=== PATIENT | male | born 1960 | race Caucasian/White ===

== ENCOUNTER 2020-10-12 19:06 | Emergency (ER) | payer SELFPAY ==
[2020-10-12 19:37] VITALS: BP 149/62; PULSE 121; TEMP 98.9; BMI 25.5
[2020-10-12 21:11] LABS: HEMATOCRIT 41.2 % (35.4-49); HEMOGLOBIN 13.8 GM/dL (11.7-16.9); LYMPH % 3.4 % (8-40); MCH 31.5 pg (25.7-33.7); MCHC 33.6 g/dl (32.0-35.9); MEAN CELL VOLUME 93.8 fl (80-96); MEAN PLT VOLUME 8.1 fl (7.5-11.1); MONO % 7.8 % (3.8-10.2); NEUT % 88.8 % (42.8-82.8); PLATELET COUNT 361 K/MM3 (134-434); RBC 4.39 M/mm3 (4.00-5.60); RDW 15.3 % (11.9-15.9); WHITE BLOOD COUNT 20.4 K/mm3 (4.0-10.0)
[2020-10-12 21:55] LABS: POTASSIUM 4.1 mmol/L (3.5-5.1)
[2020-10-12 21:58] LABS: ALBUMIN 3.1 g/dl (3.4-5.0); BLOOD UREA NITROGEN 20.6 mg/dL (7-18); CALCIUM 8.7 mg/dL (8.5-10.1)
[2020-10-12 22:00] LABS: ANISOCYTOSIS 1+; MACROCYTOSIS 1+; PLATELET ESTIMATE NORMAL
[2020-10-12 22:01] LABS: CREATININE 1.1 mg/dL (0.55-1.3)
[2020-10-12 22:03] LABS: BILIRUBIN,TOTAL 0.8 mg/dL (0.2-1)
[2020-10-12 22:50] LABS: EPI CELLS 10 /uL (0-25.1); HYALINE CASTS 6 /uL (0-3.1); URINE APPEARANCE TURBID; URINE BACTERIA >9,000 /uL (0-1359); URINE BILIRUBIN 1+ (NEGATIVE); URINE COLOR DK YELLOW; URINE GLUCOSE (UA) NEGATIVE (NEGATIVE); URINE KETONE TRACE (NEGATIVE); URINE LEUK ESTERASE 2+ (NEGATIVE); URINE NITRITE POSITIVE (NEGATIVE); URINE PROTEIN 2+ (NEGATIVE); URINE WBC 2041 /uL (0-25.8)
[2020-10-12 23:05] LABS: METHADONE, UR NEGATIVE ng/ml (CUTOFF=300)
[2020-10-12 23:06] LABS: PHENCYCLIDINE,URINE NEGATIVE ng/ml (CUTOFF=25); URINE AMPHETAMINES NEGATIVE ng/ml (CUTOFF=500)
[2020-10-12 23:07] LABS: COCAINE, UR NEGATIVE ng/ml (CUTOFF=300); OPIATES, URI POSITIVE ng/ml (CUTOFF=300); URINE BARBITURATES NEGATIVE ng/ml (CUTOFF=200); URINE BENZODIAZEPINES NEGATIVE ng/ml (CUTOFF=200)
[2020-10-12 23:25] LABS: URINE RBC 206 /uL (0-23.9)
== END 2020-10-12 23:25 | disposition left against medical advice (07) ==
LOC: JER 19:06
DX: R55 Syncope and collapse (principal); R00.2 Palpitations
CPT/HCPCS: 36415; 70450-TC; 71046-TC-FY; 80053; 80307; 81003; 82550; 84484; 85025; 93005; 93010; 99285-25; C9803; U0003; U0005

== ENCOUNTER 2020-10-17 15:32 | Inpatient (IN) | payer OTHER ==
[2020-10-17] MEDS ORDERED: SODIUM CHLORIDE 2,177 ML IV ONE (15:48)
[2020-10-17] MEDS ORDERED: NALOXONE HCL 0.4 MG/ML VIAL ONE (16:07)
[2020-10-17] MEDS ORDERED: ACETAMINOPHEN 1000 MG/100 ML VIAL (NON FORMULARY) IVPB ONE (16:11)
[2020-10-17] MEDS ORDERED: ACETAMINOPHEN INJECTION 100 ML IVPB ONE (16:12)
[2020-10-17] MEDS ORDERED: CEFTRIAXONE 1 GM in DEXTROSE 5%-WATER - 100 ML IVPB ONE (16:16)
[2020-10-17] MEDS ORDERED: CEFTRIAXONE 1 GM/50 ML BAG ONE (16:21)
[2020-10-17 16:27] LABS: VENOUS BASE EXCESS -5.8 mmol/L (-2-2); VENOUS PCO2 67.1 mmHg (38-52); VENOUS PH 7.173 (7.310-7.410)
[2020-10-17 16:29] LABS: BASO % 0.6 % (0-2.0); EOS % 0.1 % (0-4.5); HEMATOCRIT 44.5 % (35.4-49); HEMOGLOBIN 14.5 GM/dL (11.7-16.9); LYMPH % 5.3 % (8-40); MCH 31.3 pg (25.7-33.7); MCHC 32.6 g/dl (32.0-35.9); MEAN CELL VOLUME 95.9 fl (80-96); MEAN PLT VOLUME 8.4 fl (7.5-11.1); MONO % 5.5 % (3.8-10.2); NEUT % 88.5 % (42.8-82.8); PLATELET COUNT 447 K/MM3 (134-434); RBC 4.64 M/mm3 (4.00-5.60); RDW 15.8 % (11.9-15.9); WHITE BLOOD COUNT 24.3 K/mm3 (4.0-10.0)
[2020-10-17 16:37] LABS: INR 1.41 (0.83-1.09); PROTHROMBIN TIME (PATIENT) 16.9 SEC (9.7-13.0)
[2020-10-17 16:40] LABS: EPI CELLS 12 /uL (0-25.1); HYALINE CASTS 7 /uL (0-3.1); URINE APPEARANCE TURBID; URINE BACTERIA 1889 /uL (0-1359); URINE BILIRUBIN 2+ (NEGATIVE); URINE COLOR DK YELLOW; URINE GLUCOSE (UA) NEGATIVE (NEGATIVE); URINE KETONE TRACE (NEGATIVE); URINE LEUK ESTERASE TRACE (NEGATIVE); URINE NITRITE NEGATIVE (NEGATIVE); URINE PROTEIN 2+ (NEGATIVE); URINE UROBILINOGEN 0.2 mg/dL (0.2-1.0); URINE WBC 243 /uL (0-25.8)
[2020-10-17 16:57] LABS: ALBUMIN 3.6 g/dl (3.4-5.0); BLOOD UREA NITROGEN 44.8 mg/dL (7-18); CALCIUM 8.9 mg/dL (8.5-10.1)
[2020-10-17 17:00] LABS: CREATININE 4.5 mg/dL (0.55-1.3)
[2020-10-17 17:02] LABS: BILIRUBIN,TOTAL 0.5 mg/dL (0.2-1); TOT PROT 8.8 g/dl (6.4-8.2)
[2020-10-17 17:23] LABS: POTASSIUM 5.6 mmol/L (3.5-5.1)
[2020-10-17 17:24] LABS: ALBUMIN 3.6 g/dl (3.4-5.0); BLOOD UREA NITROGEN 46.4 mg/dL (7-18); CALCIUM 9.4 mg/dL (8.5-10.1)
[2020-10-17 17:28] LABS: CREATININE 4.5 mg/dL (0.55-1.3)
[2020-10-17 17:29] LABS: URINE AMPHETAMINES NEGATIVE ng/ml (CUTOFF=500); URINE BARBITURATES NEGATIVE ng/ml (CUTOFF=200)
[2020-10-17 17:29] LABS: BILIRUBIN,TOTAL 0.4 mg/dL (0.2-1); TOT PROT 8.9 g/dl (6.4-8.2)
[2020-10-17 17:30] LABS: COCAINE, UR NEGATIVE ng/ml (CUTOFF=300); METHADONE, UR NEGATIVE ng/ml (CUTOFF=300); OPIATES, URI NEGATIVE ng/ml (CUTOFF=300); PHENCYCLIDINE,URINE NEGATIVE ng/ml (CUTOFF=25)
[2020-10-17 17:33] LABS: URINE BENZODIAZEPINES NEGATIVE ng/ml (CUTOFF=200)
[2020-10-17 17:33] LABS: ANISOCYTOSIS 1+; MACROCYTOSIS 0; PLATELET ESTIMATE NORMAL
[2020-10-17 18:04] LABS: CALCIUM 8.7 mg/dL (8.5-10.1); CHLORIDE 108 mmol/L (98-107); SODIUM 137 mmol/L (136-145)
[2020-10-17 18:05] LABS: BLOOD UREA NITROGEN 50.6 mg/dL (7-18); GLUCOSE,RANDOM 107 mg/dL (74-106)
[2020-10-17 18:06] LABS: CO2 24 mmol/L (21-32)
[2020-10-17 18:08] LABS: ANION GAP 5 MMOL/L (8-16); CREATININE 4.1 mg/dL (0.55-1.3); POTASSIUM 8.5 mmol/L (3.5-5.1)
[2020-10-17 18:44] LABS: URINE RBC 27.1 /uL (0-23.9)
[2020-10-17 19:37] LABS: ERYTHROCYTE SEDIMENTATION RATE 67 mm/hr (0-20)
[2020-10-17 20:09] LABS: POTASSIUM 5.1 mmol/L (3.5-5.1)
[2020-10-17] MEDS ORDERED: SODIUM CHLORIDE 0.45% 1,000 ML IV SCH (21:00)
[2020-10-17] MEDS: NYSTATIN 500,000 UNITS/5 ML SUSPENSION PO SCH (23:07)
[2020-10-17] MEDS: HEPARIN NA (PORCINE) 5,000 UNITS/ML 1ML VIAL SQ SCH (23:08)
[2020-10-17 23:20] VITALS: BMI 19.2
[2020-10-17] MEDS: AMPICILLIN NA/SULBACTAM NA 3 GM in SODIUM CHLORIDE 100 ML IVPB SCH (23:29)
[2020-10-18] MEDS ORDERED: FAMOTIDINE 20 MG TABLET PO ONE (01:50)
[2020-10-18] MEDS: NYSTATIN 500,000 UNITS/5 ML SUSPENSION PO SCH ×4 (05:38→23:24)
[2020-10-18] MEDS: HEPARIN NA (PORCINE) 5,000 UNITS/ML 1ML VIAL SQ SCH ×3 (05:39→22:16)
[2020-10-18 07:22] LABS: BLOOD UREA NITROGEN 40.6 mg/dL (7-18); CALCIUM 8.2 mg/dL (8.5-10.1)
[2020-10-18 07:23] LABS: MAGNESIUM 2.1 mg/dL (1.8-2.4)
[2020-10-18 07:25] LABS: BASO % 0.4 % (0-2.0); BILIRUBIN,DIRECT 0.2 mg/dL (0.0-0.2); EOS % 0.1 % (0-4.5); HEMATOCRIT 34.6 % (35.4-49); HEMOGLOBIN 11.5 GM/dL (11.7-16.9); LYMPH % 12.9 % (8-40); MCH 31.5 pg (25.7-33.7); MCHC 33.3 g/dl (32.0-35.9); MEAN CELL VOLUME 94.4 fl (80-96); MEAN PLT VOLUME 8.1 fl (7.5-11.1); MONO % 5.5 % (3.8-10.2); NEUT % 81.1 % (42.8-82.8); PLATELET COUNT 319 K/MM3 (134-434); RBC 3.67 M/mm3 (4.00-5.60); WHITE BLOOD COUNT 15.8 K/mm3 (4.0-10.0)
[2020-10-18 07:26] LABS: CREATININE 1.9 mg/dL (0.55-1.3)
[2020-10-18 07:27] LABS: PHOSPHOROUS 4.1 mg/dL (2.5-4.9)
[2020-10-18 07:28] LABS: BILIRUBIN,TOTAL 0.4 mg/dL (0.2-1)
[2020-10-18 07:38] LABS: ALBUMIN 2.8 g/dl (3.4-5.0); TOT PROT 6.6 g/dl (6.4-8.2)
[2020-10-18] MEDS ORDERED: PT OWN MED DRAWER 7, Y5N ONE ×2 (09:18→22:07)
[2020-10-18] MEDS: AMPICILLIN NA/SULBACTAM NA 3 GM in SODIUM CHLORIDE 100 ML IVPB SCH ×2 (09:54→22:16)
[2020-10-18] MEDS: BACITRACIN 15 GM TUBE TOPICAL OINTMENT TP SCH ×2 (12:23→22:16)
[2020-10-18] MEDS: PANTOPRAZOLE 40 MG TABLET PO SCH (12:24)
[2020-10-18] MEDS: SODIUM CHLORIDE 0.45% 1,000 ML IV SCH (12:40)
[2020-10-19] MEDS ORDERED: PT OWN MED DRAWER 7, Y5N ONE ×2 (05:30→21:12)
[2020-10-19] MEDS: HEPARIN NA (PORCINE) 5,000 UNITS/ML 1ML VIAL SQ SCH ×3 (05:36→21:43)
[2020-10-19] MEDS: NYSTATIN 500,000 UNITS/5 ML SUSPENSION PO SCH ×3 (05:36→17:26)
[2020-10-19] MEDS: SODIUM CHLORIDE 0.45% 1,000 ML IV SCH ×3 (05:37→23:00)
[2020-10-19 07:53] LABS: BASO % 0.3 % (0-2.0); EOS % 0.5 % (0-4.5); HEMATOCRIT 33.2 % (35.4-49); HEMOGLOBIN 11.3 GM/dL (11.7-16.9); LYMPH % 15.6 % (8-40); MCH 31.9 pg (25.7-33.7); MCHC 34.1 g/dl (32.0-35.9); MEAN CELL VOLUME 93.7 fl (80-96); MEAN PLT VOLUME 8.3 fl (7.5-11.1); MONO % 6.2 % (3.8-10.2); NEUT % 77.4 % (42.8-82.8); PLATELET COUNT 282 K/MM3 (134-434); RBC 3.54 M/mm3 (4.00-5.60); RDW 14.7 % (11.9-15.9); WHITE BLOOD COUNT 8.1 K/mm3 (4.0-10.0)
[2020-10-19 08:05] LABS: POTASSIUM 3.9 mmol/L (3.5-5.1)
[2020-10-19 08:11] LABS: CALCIUM 8.1 mg/dL (8.5-10.1)
[2020-10-19 08:12] LABS: ALBUMIN 2.3 g/dl (3.4-5.0); BLOOD UREA NITROGEN 16.9 mg/dL (7-18); MAGNESIUM 1.7 mg/dL (1.8-2.4)
[2020-10-19 08:15] LABS: CREATININE 0.9 mg/dL (0.55-1.3)
[2020-10-19 08:16] LABS: BILIRUBIN,TOTAL 0.6 mg/dL (0.2-1); TOT PROT 5.9 g/dl (6.4-8.2)
[2020-10-19] MEDS ORDERED: REGADENOSON 0.4 MG/5 ML PRE-FILLED SYRINGE IVPUSH ONE ×2 (10:08→10:30)
[2020-10-19] MEDS: BACITRACIN 15 GM TUBE TOPICAL OINTMENT TP SCH ×2 (12:30→21:44)
[2020-10-19] MEDS: PANTOPRAZOLE 40 MG TABLET PO SCH (12:30)
[2020-10-19] MEDS: AMPICILLIN NA/SULBACTAM NA 3 GM in SODIUM CHLORIDE 100 ML IVPB SCH ×2 (12:31→21:44)
[2020-10-19] MEDS ORDERED: MAGNESIUM OXIDE 400 MG TABLET (FP) PO ONE (18:40)
[2020-10-20] MEDS: NYSTATIN 500,000 UNITS/5 ML SUSPENSION PO SCH ×4 (00:05→17:19)
[2020-10-20] MEDS: HEPARIN NA (PORCINE) 5,000 UNITS/ML 1ML VIAL SQ SCH ×3 (06:05→21:23)
[2020-10-20 07:46] LABS: EOS % 0.9 % (0-4.5); HEMATOCRIT 33.4 % (35.4-49); HEMOGLOBIN 11.4 GM/dL (11.7-16.9); LYMPH % 18.7 % (8-40); MCH 31.8 pg (25.7-33.7); MCHC 34.2 g/dl (32.0-35.9); MEAN CELL VOLUME 92.9 fl (80-96); MEAN PLT VOLUME 8.4 fl (7.5-11.1); NEUT % 71.4 % (42.8-82.8); PLATELET COUNT 293 K/MM3 (134-434); RBC 3.59 M/mm3 (4.00-5.60); RDW 14.8 % (11.9-15.9); WHITE BLOOD COUNT 6.4 K/mm3 (4.0-10.0)
[2020-10-20 08:28] LABS: ALBUMIN 2.3 g/dl (3.4-5.0); BILIRUBIN,TOTAL 0.6 mg/dL (0.2-1); BLOOD UREA NITROGEN 8.2 mg/dL (7-18); CREATININE 0.7 mg/dL (0.55-1.3); MAGNESIUM 1.8 mg/dL (1.8-2.4); POTASSIUM 3.7 mmol/L (3.5-5.1); TOT PROT 5.7 g/dl (6.4-8.2)
[2020-10-20] MEDS: PANTOPRAZOLE 40 MG TABLET PO SCH (09:30)
[2020-10-20] MEDS: AMPICILLIN NA/SULBACTAM NA 3 GM in SODIUM CHLORIDE 100 ML IVPB SCH ×2 (09:30→21:23)
[2020-10-20] MEDS: BACITRACIN 15 GM TUBE TOPICAL OINTMENT TP SCH ×2 (09:30→21:23)
[2020-10-20] MEDS ORDERED: PT OWN MED DRAWER 7, Y5N ONE ×3 (11:34→22:08)
[2020-10-20] MEDS ORDERED: SODIUM CHLORIDE 0.45% 1,000 ML IV SCH (14:51)
[2020-10-20] MEDS: ALBUTEROL SO4 2.5/IPRATROPIUM 0.5 INH SOL 3 ML VIAL.NEB. NEB SCH (20:14)
[2020-10-20] MEDS ORDERED: ACETAMINOPHEN 1000 MG/100 ML VIAL (NON FORMULARY) IVPB ONE (23:55)
[2020-10-21] MEDS: NYSTATIN 500,000 UNITS/5 ML SUSPENSION PO SCH ×4 (00:20→17:49)
[2020-10-21] MEDS: HEPARIN NA (PORCINE) 5,000 UNITS/ML 1ML VIAL SQ SCH ×3 (06:11→21:15)
[2020-10-21] MEDS: ALBUTEROL SO4 2.5/IPRATROPIUM 0.5 INH SOL 3 ML VIAL.NEB. NEB SCH ×4 (08:45→20:03)
[2020-10-21 08:48] LABS: BASO % 0.8 % (0-2.0); EOS % 1.4 % (0-4.5); HEMOGLOBIN 11.3 GM/dL (11.7-16.9); LYMPH % 22.8 % (8-40); MCH 31.7 pg (25.7-33.7); MCHC 34.1 g/dl (32.0-35.9); MEAN CELL VOLUME 92.9 fl (80-96); MEAN PLT VOLUME 8.8 fl (7.5-11.1); MONO % 8.5 % (3.8-10.2); NEUT % 66.5 % (42.8-82.8); PLATELET COUNT 291 K/MM3 (134-434); RBC 3.55 M/mm3 (4.00-5.60); RDW 14.3 % (11.9-15.9); WHITE BLOOD COUNT 4.8 K/mm3 (4.0-10.0)
[2020-10-21 09:09] LABS: POTASSIUM 3.8 mmol/L (3.5-5.1)
[2020-10-21 09:27] LABS: ALBUMIN 2.4 g/dl (3.4-5.0); BLOOD UREA NITROGEN 6.4 mg/dL (7-18); CALCIUM 8.1 mg/dL (8.5-10.1); MAGNESIUM 1.7 mg/dL (1.8-2.4)
[2020-10-21 09:30] LABS: CREATININE 0.7 mg/dL (0.55-1.3)
[2020-10-21 09:32] LABS: BILIRUBIN,TOTAL 0.4 mg/dL (0.2-1); TOT PROT 5.8 g/dl (6.4-8.2)
[2020-10-21] MEDS ORDERED: AMPICILLIN NA/SULBACTAM NA 3 GM in SODIUM CHLORIDE 100 ML IVPB SCH (10:00)
[2020-10-21] MEDS ORDERED: PT OWN MED DRAWER 7, Y5N ONE (10:25)
[2020-10-21] MEDS: PANTOPRAZOLE 40 MG TABLET PO SCH (10:28)
[2020-10-21] MEDS: BACITRACIN 15 GM TUBE TOPICAL OINTMENT TP SCH ×2 (11:58→21:14)
[2020-10-21] MEDS: SODIUM CHLORIDE 0.45% 1,000 ML IV SCH ×2 (12:48→18:40)
[2020-10-21] MEDS ORDERED: MAGNESIUM 2GM/50ML STERILE WATER IVPB IVPB ONE (13:30)
[2020-10-21] MEDS ORDERED: ACETAMINOPHEN 500 MG TABLET (FP) PO PRN (17:31)
[2020-10-21] MEDS: oxyCODONE HCL 5 MG TABLET PO PRN (17:47)
[2020-10-22] MEDS: NYSTATIN 500,000 UNITS/5 ML SUSPENSION PO SCH ×2 (00:01→05:23)
[2020-10-22] MEDS: HEPARIN NA (PORCINE) 5,000 UNITS/ML 1ML VIAL SQ SCH ×3 (05:23→21:09)
[2020-10-22] MEDS: oxyCODONE HCL 5 MG TABLET PO PRN ×2 (05:45→21:09)
[2020-10-22] MEDS: SODIUM CHLORIDE 0.45% 1,000 ML IV SCH ×3 (06:45→20:13)
[2020-10-22 08:43] LABS: BASO % 1.2 % (0-2.0); HEMATOCRIT 34.7 % (35.4-49); HEMOGLOBIN 11.9 GM/dL (11.7-16.9); LYMPH % 21.1 % (8-40); MCHC 34.3 g/dl (32.0-35.9); MEAN CELL VOLUME 93.3 fl (80-96); MEAN PLT VOLUME 8.8 fl (7.5-11.1); MONO % 8.3 % (3.8-10.2); NEUT % 67.4 % (42.8-82.8); PLATELET COUNT 289 K/MM3 (134-434); RBC 3.72 M/mm3 (4.00-5.60); RDW 14.6 % (11.9-15.9); WHITE BLOOD COUNT 5.3 K/mm3 (4.0-10.0)
[2020-10-22] MEDS: ALBUTEROL SO4 2.5/IPRATROPIUM 0.5 INH SOL 3 ML VIAL.NEB. NEB SCH ×4 (08:44→19:44)
[2020-10-22 08:53] LABS: POTASSIUM 3.9 mmol/L (3.5-5.1)
[2020-10-22 08:57] LABS: ALBUMIN 2.6 g/dl (3.4-5.0); CALCIUM 8.7 mg/dL (8.5-10.1)
[2020-10-22 08:58] LABS: BLOOD UREA NITROGEN 7.5 mg/dL (7-18); MAGNESIUM 1.9 mg/dL (1.8-2.4)
[2020-10-22 09:01] LABS: CREATININE 0.7 mg/dL (0.55-1.3)
[2020-10-22 09:02] LABS: BILIRUBIN,TOTAL 0.4 mg/dL (0.2-1); TOT PROT 6.2 g/dl (6.4-8.2)
[2020-10-22] MEDS ORDERED: PT OWN MED DRAWER 7, Y5N ONE (09:42)
[2020-10-22] MEDS: PANTOPRAZOLE 40 MG TABLET PO SCH (09:45)
[2020-10-22] MEDS: BACITRACIN 15 GM TUBE TOPICAL OINTMENT TP SCH ×2 (09:45→21:12)
[2020-10-22] MEDS: oxyCODONE HCL 5 MG TABLET PO ONE ×2 (13:40→20:07)
[2020-10-22] MEDS ORDERED: ACETAMINOPHEN 325 MG TABLET (FP) PO PRN (20:30)
[2020-10-23] MEDS: HEPARIN NA (PORCINE) 5,000 UNITS/ML 1ML VIAL SQ SCH ×2 (05:20→13:36)
[2020-10-23] MEDS: oxyCODONE HCL 5 MG TABLET PO PRN ×2 (06:30→13:42)
[2020-10-23] MEDS: ALBUTEROL SO4 2.5/IPRATROPIUM 0.5 INH SOL 3 ML VIAL.NEB. NEB SCH ×3 (07:55→15:15)
[2020-10-23] MEDS: SODIUM CHLORIDE 0.45% 1,000 ML IV SCH ×2 (08:36→13:44)
[2020-10-23 08:49] LABS: BASO % 1.3 % (0-2.0); EOS % 2.3 % (0-4.5); HEMATOCRIT 34.6 % (35.4-49); HEMOGLOBIN 11.9 GM/dL (11.7-16.9); LYMPH % 20.9 % (8-40); MCH 31.7 pg (25.7-33.7); MCHC 34.3 g/dl (32.0-35.9); MEAN CELL VOLUME 92.2 fl (80-96); MEAN PLT VOLUME 8.9 fl (7.5-11.1); MONO % 8.1 % (3.8-10.2); NEUT % 67.4 % (42.8-82.8); PLATELET COUNT 294 K/MM3 (134-434); RBC 3.76 M/mm3 (4.00-5.60); RDW 14.7 % (11.9-15.9); WHITE BLOOD COUNT 5.4 K/mm3 (4.0-10.0)
[2020-10-23] MEDS: PANTOPRAZOLE 40 MG TABLET PO SCH (09:07)
[2020-10-23] MEDS: BACITRACIN 15 GM TUBE TOPICAL OINTMENT TP SCH (09:07)
[2020-10-23 09:11] LABS: ALBUMIN 2.7 g/dl (3.4-5.0)
[2020-10-23 09:14] LABS: BILIRUBIN,TOTAL 0.4 mg/dL (0.2-1); TOT PROT 6.1 g/dl (6.4-8.2)
[2020-10-23 09:15] LABS: BLOOD UREA NITROGEN 7.1 mg/dL (7-18); CALCIUM 8.9 mg/dL (8.5-10.1)
[2020-10-23 09:17] LABS: MAGNESIUM 1.8 mg/dL (1.8-2.4)
[2020-10-23 09:18] LABS: CREATININE 0.7 mg/dL (0.55-1.3)
[2020-10-23 10:07] LABS: SARS-CoV-2 NAA Not Detected (Not Detected)
[2020-10-23 13:54] VITALS: BP 146/72; PULSE 65; TEMP 97.9
== END 2020-10-23 18:53 | disposition short-term general hospital (02) | DRG 469 ==
LOC: JER 15:32 → JERBED 16:18 → J4S 22:35 → J8W 10-20 20:35
PROVIDERS: ADMIT Family Medicine; ATTEND Nurse Practitioner Acute Care
DX: N17.9 Acute kidney failure, unspecified (principal); M62.82 Rhabdomyolysis; R00.0 Tachycardia, unspecified; I10 Essential (primary) hypertension; N39.0 Urinary tract infection, site not specified; E87.2 Acidosis; D72.829 Elevated white blood cell count, unspecified; K90.0 Celiac disease; R77.8 Other specified abnormalities of plasma proteins; E87.5 Hyperkalemia; F11.10 Opioid abuse, uncomplicated; F19.20 Other psychoactive substance dependence, uncomplicated; R10.13 Epigastric pain; M54.5 Low back pain; R93.2 Abnormal findings on diagnostic imaging of liver and biliary tract; K81.0 Acute cholecystitis; R79.89 Other specified abnormal findings of blood chemistry; R13.10 Dysphagia, unspecified; I24.8 Other forms of acute ischemic heart disease; R63.6 Underweight; Z68.1 Body mass index [BMI] 19.9 or less, adult; Z59.0 Homelessness
CPT/HCPCS: 36415; 70450-TC; 71045-TC-FY; 72125-TC; 74220-TC-FY; 74240-TC-FY; 76705-TC; 76775-TC; 76856-TC; 78452-TC; 80048; 80053; 80074; 80076; 80307; 81003; 82550; 82553; 82803; 82962; 82977; 83605; 83735; 84100; 84132; 84439; 84443; 84484; 85025; 85610; 85651; 85730; 86140; 86708; 87040; 87077; 87086; 87186; 93005; 93010; 93017; 93306-TC; 94640; 97116-GP; 97161-GP; 99285-25; A9502; C9803; J0131; J1644; J2785; U0003; U0005